=== PATIENT | male | born 1960 | race Caucasian/White ===

== ENCOUNTER 2016-12-02 07:30 | Emergency (ER) | payer OTHER ==
[2016-12-02 07:31] VITALS: BMI 31.8
[2016-12-02 07:47] VITALS: RESP 18; O2SAT 99
--- NOTE | 2016-12-02 09:23 | C.PDOC ---
History Of Present Illness 56-year-old male, PMHx includes Anemia, Arthritis, Back Problems (Sciatica, Herniated Discs), Depression, Diabetes, HTN, Hypercholesterolemia, Chronic Pain (Back Pain), presents to the emergency department with complaints of chronic pain. Patient states he has an appointment with pain management in two days. Patient is taking Muscle relaxers and Oxycodone. States he has low back pain shooting down his leg. Denies any numbness/weakness. 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 Time Seen by Provider: 12/02/16 08:01 Chief Complaint (Nursing): Back Pain History Per: Patient History/Exam Limitations: no limitations Current Symptoms Are (Timing): Still Present Past Medical History Reviewed: Historical Data, Nursing Documentation, Vital Signs Vital Signs: Last Vital Signs Temp 97.8 F 12/02/16 09:33 Pulse 91 H 12/02/16 09:33 Resp 18 12/02/16 09:33 BP 104/69 12/02/16 09:33 Pulse Ox 99 12/02/16 09:33 - Medical History PMH: Anemia (Fe deficiency), Arthritis, Back Problems (Sciatica, Herniated Discs ), Depression, Diabetes, HTN, Hypercholesterolemia, Chronic Pain (Back Pain) Surgical History: Back Surgery (2002) Family History: States: No Known Family Hx - Social History Hx Tobacco Use: No Hx Alcohol Use: No Hx Substance Use: No - Immunization History Hx Tetanus Toxoid Vaccination: Yes Hx Influenza Vaccination: Yes Hx Pneumococcal Vaccination: No Review Of Systems Except As Marked, All Systems Reviewed And Found Negative. Constitutional: Positive for: Other (chronic back pain). Negative for: Fever Gastrointestinal: Negative for: Nausea, Vomiting Musculoskeletal: Positive for: Back Pain Neurological: Negative for: Weakness, Numbness, Headache, Dizziness Physical Exam - Physical Exam Appears: Non-toxic, No Acute Distress Skin: Warm, Dry, No Rash Head: Atraumatic, Normacephalic Eye(s): bilateral: Normal Inspection, PERRL Nose: Normal Oral Mucosa: Moist Lips: Normal Appearing Neck: Normal ROM Chest: Symmetrical Cardiovascular: Rhythm Regular, No Murmur Respiratory: Normal Breath Sounds, No Accessory Muscle Use Back: Paraspinal Tenderness (Lumbar, right.) Extremity: Normal ROM Neurological/Psych: Oriented x3, Normal Speech ED Course And Treatment ECG: Interpreted By Me ECG Rhythm: Sinus Rhythm ECG Interpretation: Normal Rate From EC O2 Sat by Pulse Oximetry: 99 Pulse Ox Interpretation: Normal Progress Note: Treated with toradol IM. On re-evaluation feeling better. ambulating with cane, in no distresss Reassessment Condition: Improved Medical Decision Making Medical Decision Making: Patient denies any chest pain C/O chronic lower back pain radiating into right leg patient has appointment with pain management Dr Bunch on wednesday for epidural Disposition Counseled Patient/Family Regarding: Diagnosis, Need For Followup - Disposition Referrals: [facility] [Outside] [facility] [Outside] Disposition: HOME/ ROUTINE Disposition Time: 09:30 Condition: GOOD Additional Instructions: Follow up with pain management for further evaluation Instructions: Chronic Back Pain (ED) - POA Present On Arrival: None - Clinical Impression Clinical Impression: Chronic back pain - Scribe Statement The provider has reviewed the documentation as recorded by the Scribe (Radha Hayes) All medical record entries made by the Scribe were at my direction and personally dictated by me. I have reviewed the chart and agree that the record accurately reflects my personal performance of the history, physical exam, medical decision making, and the department course for this patient. I have also personally directed, reviewed, and agree with the discharge instructions and disposition.
[2016-12-02 09:36] VITALS: BP 104/69; PULSE 91; TEMP 97.8
--- NOTE | 2016-12-03 14:47 | CARD ---
APPROVED REPORT EKG Measurement Heart [id number] <Conclusion> Normal sinus rhythm Normal ECG
== END 2016-12-02 09:36 | disposition home or self-care (01) ==
LOC: C.ER 07:30
DX: G89.29 Other chronic pain (principal); M54.5 Low back pain
CPT/HCPCS: 93005; 96372; 99285; J1885